=== PATIENT | male | born 1985 | race American Indian/Alaskan Native ===

== ENCOUNTER 2017-09-11 01:16 | Emergency (ER) | payer SELFPAY ==
--- NOTE | 2017-09-11 02:27 | Cat Scan Report ---
FINAL REPORT EXAM: CT HEAD/BRAIN WO CON HISTORY: headaches COMPARISON: None available. TECHNIQUE: Axial images obtained skull base through vertex. FINDINGS: No acute intracranial hemorrhage, midline shift or pathologic extra axial fluid collection. Ventricles and cisterns are normal in size and configuration for the patient's age. Zepeda-white differentiation preserved. Calvarium grossly intact. Visualized ocular globes are grossly unremarkable. Visualized para-nasal sinuses and mastoid air cells are clear. IMPRESSION: No grossly acute intracranial abnormality.
[2017-09-11 02:49] LABS: Basophils % (Auto) 0.3 % (0.0-1.8); Eosinophils # (Auto) 0.2 K/mm3 (0.0-0.4); Hematocrit 44.7 % (35.5-45.6); Hemoglobin 14.7 gm/dl (11.8-15.2); Lymphocytes # (Auto) 2.4 K/mm3 (1.2-5.4); Lymphocytes % (Auto) 30.4 % (13.4-35.0); Mean Corpuscular HGB Conc 33 % (32-34); Mean Corpuscular Volume 79 fl (84-94); Monocytes # (Auto) 0.7 K/mm3 (0.0-0.8); Monocytes % (Auto) 8.5 % (0.0-7.3); Platelet Count 314 K/mm3 (140-440); Red Blood Count 5.68 M/mm3 (3.65-5.03); Red Cell Distribution Width 14.5 % (13.2-15.2)
[2017-09-11 02:51] LABS: Mean Corpuscular Hemoglobin 26 pg (28-32)
[2017-09-11 03:06] LABS: BUN/Creatinine Ratio 22; Blood Urea Nitrogen 20 mg/dL (9-20); Calcium 9.1 mg/dL (8.4-10.2); Hemolysis Index 16
[2017-09-11 06:00] VITALS: BP 135/77
--- NOTE | 2017-09-11 06:34 | Emergency Department Report ---
ED General Adult HPI - General Chief complaint: Dizziness Stated complaint: HEADACHES Time Seen by Provider: 09/11/17 06:31 Source: patient Mode of arrival: Ambulatory Limitations: No Limitations - History of Present Illness Initial comments: Patient arrives for evaluation of one to 2 weeks of frontal headache. He states he's been working 2 shifts instead of one. He is apparently under stress. He states the headache is associated with being overwork. It is in the right frontal area. He states he periodically feels weak and dizzy with a headache. He does not vomit. He states he has had no fever no chills no focal neurologic change, that is, weakness or numbness. He denies any actual vertigo. No visual changeor difficulty no problems walking or speaking. -: week(s) Location: head Radiation: non-radiation Severity scale (0 -10): 0 Consistency: now resolved Improves with: none Worsens with: none Associated Symptoms: denies other symptoms Treatments Prior to Arrival: none - Related Data Previous Rx's Medication Instructions Recorded Last Taken Type Amlodipine Besylate [Norvasc] 2.5 mg PO DAILY #30 tab 09/11/17 Unknown Rx Butalb/Acetamin/Caff 50-325-40 1 each PO Q4H PRN #14 tablet 09/11/17 Unknown Rx [Fioricet] Allergies Allergy/AdvReac Type Severity Reaction Status Date / Time diphenhydramine Allergy Vomiting Verified 09/11/17 01:54 [From Benadryl] shellfish derived Allergy Hives Verified 09/11/17 01:54 ED Review of Systems ROS: Stated complaint: HEADACHES Other details as noted in HPI Constitutional: denies: chills, fever Eyes: denies: eye pain, eye discharge, vision change ENT: denies: ear pain, throat pain Respiratory: denies: cough, shortness of breath, wheezing Cardiovascular: denies: chest pain, palpitations Endocrine: no symptoms reported Gastrointestinal: denies: abdominal pain, nausea, diarrhea Genitourinary: denies: urgency, dysuria Musculoskeletal: denies: back pain, joint swelling, arthralgia Skin: denies: rash, lesions Neurological: headache. denies: weakness, paresthesias Psychiatric: denies: anxiety, depression Hematological/Lymphatic: denies: easy bleeding, easy bruising ED Past Medical Hx - Past Medical History Hx Diabetes: Yes - Surgical History Past Surgical History?: No - Social History Smoking Status: Never Smoker Substance Use Type: None - Medications Home Medications: Home Medications Medication Instructions Recorded Confirmed Last Taken Type Amlodipine Besylate [Norvasc] 2.5 mg PO DAILY #30 tab 09/11/17 Unknown Rx Butalb/Acetamin/Caff 50-325-40 1 each PO Q4H PRN #14 tablet 09/11/17 Unknown Rx [Fioricet] ED Physical Exam - General Limitations: No Limitations General appearance: alert, in no apparent distress - Head Head exam: Present: atraumatic, normocephalic, other (some seborrheic dermatitis noticed of the scalp and rico) - Eye Eye exam: Present: normal appearance, PERRL, EOMI. Absent: scleral icterus - ENT ENT exam: Present: mucous membranes moist - Neck Neck exam: Present: normal inspection. Absent: tenderness, meningismus - Respiratory Respiratory exam: Present: normal lung sounds bilaterally. Absent: respiratory distress - Cardiovascular Cardiovascular Exam: Present: regular rate, normal rhythm. Absent: systolic murmur, diastolic murmur, rubs, gallop - GI/Abdominal GI/Abdominal exam: Present: soft, normal bowel sounds. Absent: distended, tenderness, guarding, rebound, rigid - Rectal Rectal exam: Present: deferred - Extremities Exam Extremities exam: Present: normal inspection - Back Exam Back exam: Present: normal inspection - Neurological Exam Neurological exam: Present: alert, oriented X3, CN II-XII intact, normal gait, other (cerebellar testing was normal). Absent: motor sensory deficit - Psychiatric Psychiatric exam: Present: normal affect, normal mood - Skin Skin exam: Present: warm, dry, intact, normal color. Absent: rash ED Course Vital Signs 09/11/17 09/11/17 01:24 06:00 Temperature 98.6 F 98.1 F Pulse Rate 95 H 89 Respiratory 18 18 Rate Blood Pressure 142/93 135/77 [Right] O2 Sat by Pulse 99 Oximetry - Reevaluation(s) Reevaluation #1: She was found sleeping on my encounter. His blood pressure was 141/99. I am going to put him on a low-dose of amlodipine. He is referred to neurology and primary care for follow-up. 09/11/17 07:01 ED Medical Decision Making - Lab Data Result diagrams: 09/11/17 02:24 09/11/17 02:24 Laboratory Results - last 24 hr 09/11/17 09/11/17 02:24 02:24 WBC 7.9 RBC 5.68 H Hgb 14.7 Hct 44.7 MCV 79 L MCH 26 L MCHC 33 RDW 14.5 Plt Count 314 Lymph % (Auto) 30.4 [place] % (Auto) 8.5 H Eos % (Auto) 3.0 Baso % (Auto) 0.3 Lymph # 2.4 [place] # 0.7 Eos # 0.2 Baso # 0.0 Seg Neutrophils % 57.8 Seg Neutrophils # 4.6 Sodium 140 Potassium 4.4 Chloride 98.7 Carbon Dioxide 29 Anion Gap 17 BUN 20 Creatinine 0.9 Estimated GFR > 60 BUN/Creatinine Ratio 22 Glucose 89 Calcium 9.1 - Radiology Data Radiology results: report reviewed (CT the head was negative for any abnormal intracranial process) Critical care attestation.: If time is entered above; I have spent that time in minutes in the direct care of this critically ill patient, excluding procedure time. ED Disposition Clinical Impression: Essential hypertension, Seborrheic dermatitis of scalp Cephalalgia Qualifiers: Headache type: unspecified Headache chronicity pattern: episodic headache Intractability: not intractable Qualified Code(s): R51 - Headache Disposition: - TO HOME OR SELFCARE Is pt being admited?: No Does the pt Need Aspirin: No Condition: Stable Instructions: Hypertension (ED), Acute Headache (ED) Additional Instructions: He will use head and shoulders for the scaly patches of your scalp and rico. Follow-up with a industrial furnace fabricator if not resolved. Rx for headache. Return any acute change or problem. Medicine for your elevated blood pressure. Follow-up at this outside medical clinic and neurologist if your headache is persistent. Return any acute change or problems. Prescriptions: Amlodipine Besylate [Norvasc] 2.5 mg PO DAILY #30 tab Butalb/Acetamin/Caff 50-325-40 [Fioricet] 1 each PO Q4H PRN #14 tablet PRN Reason: Headache Referrals: BARRON MORATAYA MD [Primary Care Provider] - 3-5 Days KACI CONWAY MD [Staff Physician] - 3-5 Days [facility] [Provider Group] - 2-3 Days Time of Disposition: 07:05
== END 2017-09-11 07:18 | disposition home or self-care (01) ==
LOC: ED 01:16
DX: I10 Essential (primary) hypertension (principal); L21.9 Seborrheic dermatitis, unspecified; R51 Headache; E11.9 Type 2 diabetes mellitus without complications
CPT/HCPCS: 36415; 70450; 80048; 85025; 93005; 93010

== ENCOUNTER 2018-11-30 20:28 | Emergency (ER) | payer SELFPAY ==
--- NOTE | 2018-11-30 21:08 | Emergency Department Report ---
Blank Doc - Documentation Documentation: This is a 33-year-old male that presents with URI symptoms. This initial assessment/diagnostic orders/clinical plan/treatment(s) is/are subject to change based on patient's health status, clinical progression and re- assessment by fellow clinical providers in the ED. Further treatment and workup at subsequent clinical providers discretion. Patient/guardians urged not to elope from the ED as their condition may be serious if not clinically assessed and managed. Initial orders include: 1- Patient sent to [facility] for further evaluation and treatment 2- cxr
[2018-11-30 21:09] VITALS: BP 130/88
--- NOTE | 2018-11-30 21:46 | XRay Report ---
PROCEDURE: XR CHEST ROUTINE 2V TECHNIQUE: PA and lateral chest radiographs were obtained. HISTORY: cough COMPARISONS: None. FINDINGS: Heart: Normal. Mediastinum/Vessels: Normal. Lungs/Pleural space: Normal. Bony thorax: No acute osseous abnormality. IMPRESSION: Normal examination. This document is electronically signed by Harvinder Lancaster MD., November 30 2018 10:44:51 PM ET
--- NOTE | 2018-12-01 01:10 | Emergency Department Report ---
- General Chief Complaint: Upper Respiratory Infection Stated Complaint: COLD SYMPTOMS/DIARRHEA Time Seen by Provider: 11/30/18 21:08 Source: patient Mode of arrival: Ambulatory Limitations: No Limitations - History of Present Illness Initial Comments: Patient is a 33-year-old Polish male with a history of hypertension and presents to the ED with complaint of acute onset persistent severe intermittent nasal and sinus congestion with dry cough, frontal sinus pressure and headache for the last 2 weeks. Patient states that the symptoms are worse at night when he lays down to sleep. Patient denies chest pain, shortness of breath, fever, chills, nausea, vomiting, dizziness, diarrhea, abdominal pain, sore throat or change in vision and back pain. MD Complaint: cough, rhinorrhea, nasal congestion, sinus pain -: Sudden, week(s) (2) Severity: severe Severity scale (0 -10): 7 Quality: aching Consistency: constant Improves With: nothing Worsens With: nothing Context: sick contacts Associated Symptoms: denies other symptoms, headache, rhinorrhea, nasal congestion, cough, chest pain, shortness of breath. denies: fever, chills, myalgias, diaphoresis, sore throat, abdominal pain, nausea, vomiting, dysuria, rash, confusion, right sweats, epistaxis, hoarseness Treatments Prior to Arrival: none - Related Data Previous Rx's Medication Instructions Recorded Last Taken Type Amlodipine Besylate [Norvasc] 2.5 mg PO DAILY #30 tab 09/11/17 Unknown Rx Butalb/Acetamin/Caff 50-325-40 1 each PO Q4H PRN #14 tablet 09/11/17 Unknown Rx [Fioricet] Amoxicillin/Potassium Clav 1 each PO Q12H #20 tablet 12/01/18 Unknown Rx [Augmentin 875-125 Tablet] Benzonatate [Tessalon Perles] 100 mg PO Q8HR #30 capsule 12/01/18 Unknown Rx Ibuprofen [Motrin] 800 mg PO Q8HR PRN #20 tablet 12/01/18 Unknown Rx Prednisone [predniSONE 10 mg 10 mg PO .TAPER #21 tab.ds.pk 12/01/18 Unknown Rx (6-Day Pack, 21 Tabs)] Allergies Allergy/AdvReac Type Severity Reaction Status Date / Time diphenhydramine Allergy Vomiting Verified 09/11/17 01:54 [From Benadryl] shellfish derived Allergy Hives Verified 09/11/17 01:54 ED Review of Systems ROS: Stated complaint: COLD SYMPTOMS/DIARRHEA Other details as noted in HPI Comment: All other systems reviewed and negative Constitutional: no symptoms reported, see HPI. denies: diaphoresis, fever, malaise Eyes: as per HPI. denies: eye pain, eye discharge, vision change ENT: as per HPI, congestion. denies: ear pain, throat pain, epistaxis Respiratory: no symptoms reported, see HPI, cough, shortness of breath Cardiovascular: as per HPI. denies: chest pain, palpitations, dyspnea on exertion, edema, syncope, paroxysmal nocturnal dyspnea Endocrine: no symptoms reported, see HPI. denies: excessive sweating, flushing, intolerance to cold, intolerance to heat, increased hunger, unexplained weight gain, unexplained weight loss Gastrointestinal: as per HPI. denies: abdominal pain, nausea, vomiting, diarrhea, constipation, hematemesis Genitourinary: as per HPI. denies: urgency, dysuria, frequency, hematuria, testicular pain, testicular mass Musculoskeletal: as per HPI. denies: back pain, joint swelling, arthralgia Skin: as per HPI. denies: rash, lesions, change in color, change in hair/nails Neurological: as per HPI, headache. denies: numbness, paresthesias, confusion Psychiatric: as per HPI. denies: auditory hallucinations, visual hallucinations, homicidal thoughts Hematological/Lymphatic: as per HPI ED Past Medical Hx - Past Medical History Previous Medical History?: Yes Hx Diabetes: Yes (not on meds) - Surgical History Past Surgical History?: No - Social History Smoking Status: Current Every Day Smoker Substance Use Type: None - Medications Home Medications: Home Medications Medication Instructions Recorded Confirmed Last Taken Type Amlodipine Besylate [Norvasc] 2.5 mg PO DAILY #30 tab 09/11/17 Unknown Rx Butalb/Acetamin/Caff 50-325-40 1 each PO Q4H PRN #14 tablet 09/11/17 Unknown Rx [Fioricet] Amoxicillin/Potassium Clav 1 each PO Q12H #20 tablet 12/01/18 Unknown Rx [Augmentin 875-125 Tablet] Benzonatate [Tessalon Perles] 100 mg PO Q8HR #30 capsule 12/01/18 Unknown Rx Ibuprofen [Motrin] 800 mg PO Q8HR PRN #20 tablet 12/01/18 Unknown Rx Prednisone [predniSONE 10 mg 10 mg PO .TAPER #21 tab.ds.pk 12/01/18 Unknown Rx (6-Day Pack, 21 Tabs)] ED Physical Exam - General Limitations: No Limitations General appearance: alert, in no apparent distress - Head Head exam: Present: atraumatic, normocephalic, normal inspection - Eye Eye exam: Present: normal appearance, PERRL, EOMI. Absent: scleral icterus, conjunctival injection, nystagmus, periorbital swelling Pupils: Present: normal accommodation - ENT ENT exam: Present: normal exam, normal orophraynx, mucous membranes moist, TM's normal bilaterally, normal external ear exam, other - Neck Neck exam: Present: normal inspection, full ROM. Absent: tenderness, meningismus, lymphadenopathy, thyromegaly - Respiratory Respiratory exam: Present: normal lung sounds bilaterally. Absent: respiratory distress, wheezes, rales, rhonchi, chest wall tenderness, accessory muscle use, prolonged expiratory - Cardiovascular Cardiovascular Exam: Present: regular rate, normal rhythm, normal heart sounds - GI/Abdominal GI/Abdominal exam: Present: soft, normal bowel sounds. Absent: tenderness, guarding, rebound, hyperactive bowel sounds, hypoactive bowel sounds, organomegaly - Rectal Rectal exam: Present: deferred - Extremities Exam Extremities exam: Present: normal inspection, full ROM, normal capillary refill - Back Exam Back exam: Present: normal inspection, full ROM. Absent: CVA tenderness (R), CVA tenderness (L), muscle spasm, paraspinal tenderness - Neurological Exam Neurological exam: Present: alert, oriented X3, CN II-XII intact, normal gait, reflexes normal - Psychiatric Psychiatric exam: Present: normal affect - Skin Skin exam: Present: warm, dry, intact, normal color ED Course Vital Signs 11/30/18 11/30/18 20:35 21:08 Temperature 98.6 F 98.6 F Pulse Rate 83 84 Respiratory 18 18 Rate Blood Pressure 130/88 130/88 O2 Sat by Pulse 99 98 Oximetry - Reevaluation(s) Reevaluation #1: 12/01/18 01:14 Patient is alert and oriented 3 and is not in distress. Chest x-ray shows no acute cardiopulmonary abnormalities. Patient was discharged home on medications and advised follow-up with his primary care physician in 5-7 days for reevaluation or return to the ED immediately if symptoms get worse. Patient's symptoms are likely due to acute upper respiratory infection. ED Medical Decision Making - Radiology Data Radiology results: report reviewed, image reviewed No acute cardiopulmonary abnormalities - Medical Decision Making Patient is alert and oriented 3 and is not in distress. Chest x-ray shows no acute cardiopulmonary abnormalities. Patient was discharged home on medications and advised follow-up with his primary care physician in 5-7 days for r eevaluation or return to the ED immediately if symptoms get worse. Patient's symptoms are likely due to acute upper respiratory infection. - Differential Diagnosis Acute upper resp. infection, acute bronchitis Critical care attestation.: If time is entered above; I have spent that time in minutes in the direct care of this critically ill patient, excluding procedure time. ED Disposition Clinical Impression: Acute upper respiratory infection Acute bronchitis Qualifiers: Bronchitis organism: unspecified organism Qualified Code(s): J20.9 - Acute bronchitis, unspecified Disposition: TO HOME OR SELFCARE Is pt being admited?: No Does the pt Need Aspirin: No Condition: Stable Instructions: Acute Bronchitis (ED), Upper Respiratory Infection (ED) Additional Instructions: Take medications with food, drink plenty of fluids and follow up with your primary care physician in 7-10 days for reevaluation. Return to the ED immediately if symptoms get worse. Prescriptions: Amoxicillin/Potassium Clav [Augmentin 875-125 Tablet] 1 each PO Q12H #20 tablet Ibuprofen [Motrin] 800 mg PO Q8HR PRN #20 tablet PRN Reason: Pain , Severe (7-10) Prednisone [predniSONE 10 mg (6-Day Pack, 21 Tabs)] 10 mg PO .TAPER #21 tab.ds.pk Benzonatate [Tessalon Perles] 100 mg PO Q8HR #30 capsule Referrals: ALLEY PRIETO MD [Primary Care Provider] - 3-5 Days Time of Disposition: 01:10 Print Language: BELARUSIAN
== END 2018-12-01 01:35 | disposition home or self-care (01) ==
LOC: ED 20:28
DX: J20.9 Acute bronchitis, unspecified (principal); J06.9 Acute upper respiratory infection, unspecified; E11.9 Type 2 diabetes mellitus without complications; F17.200 Nicotine dependence, unspecified, uncomplicated; Z88.8 Allergy status to other drugs, medicaments and biological substances; Z91.013 Allergy to seafood
CPT/HCPCS: 71046

== ENCOUNTER 2019-01-04 15:48 | Emergency (ER) | payer OTHER ==
[2019-01-04 16:30] VITALS: BP 127/76
--- NOTE | 2019-01-04 16:31 | Event Note ---
ED Screening Note ED Screening Note: pt presents with edema to the right ear that began this morning never happened before no fever no ear drainage appears to have possible abscess to the right ear no PMHx allergy: benadryl-"drowsy/faint" and shellfish This initial assessment/diagnostic orders/clinical plan/treatment(s) is/are subj ect to change based on patients health status, clinical progression and re- assessment by fellow clinical providers in the ED. Further treatment and workup at subsequent clinical providers discretion. Patient/guardian urged not to elope from the ED as their condition may be serious if not clinically assessed and managed.
[2019-01-04] MEDS ORDERED: XYLOCAINE 1% MPF 5 mL INFILTRATI ONE (18:59)
[2019-01-04] MEDS ORDERED: BACTRIM DS PO ONE (18:59)
--- NOTE | 2019-01-04 19:28 | Emergency Department Report ---
ED ENT HPI - General Chief complaint: Earache Stated complaint: RT EAR PAIN Time Seen by Provider: 01/04/19 16:28 Source: patient Mode of arrival: Ambulatory Limitations: No Limitations - History of Present Illness Initial comments: 33-year-old male right earlobe tenderness, swelling, for the past one day. Fever, chills or night sweats. Thinks he might have been bitten by a mosquito earlier this morning. - Related Data Previous Rx's Medication Instructions Recorded Last Taken Type Amlodipine Besylate [Norvasc] 2.5 mg PO DAILY #30 tab 09/11/17 Unknown Rx Butalb/Acetamin/Caff 50-325-40 1 each PO Q4H PRN #14 tablet 09/11/17 Unknown Rx [Fioricet] Amoxicillin/Potassium Clav 1 each PO Q12H #20 tablet 12/01/18 Unknown Rx [Augmentin 875-125 Tablet] Benzonatate [Tessalon Perles] 100 mg PO Q8HR #30 capsule 12/01/18 Unknown Rx Ibuprofen [Motrin] 800 mg PO Q8HR PRN #20 tablet 12/01/18 Unknown Rx Prednisone [predniSONE 10 mg 10 mg PO .TAPER #21 tab.ds.pk 12/01/18 Unknown Rx (6-Day Pack, 21 Tabs)] Sulfamethoxazole/Trimethoprim 1 each PO BID #14 tablet 01/04/19 Unknown Rx [Bactrim DS TAB] Allergies Allergy/AdvReac Type Severity Reaction Status Date / Time diphenhydramine Allergy Vomiting Verified 09/11/17 01:54 [From Benadryl] shellfish derived Allergy Hives Verified 09/11/17 01:54 ED Dental HPI - General Chief complaint: Earache Stated complaint: RT EAR PAIN Time Seen by Provider: 01/04/19 16:28 Source: patient Mode of arrival: Ambulatory Limitations: No Limitations - Related Data Previous Rx's Medication Instructions Recorded Last Taken Type Amlodipine Besylate [Norvasc] 2.5 mg PO DAILY #30 tab 09/11/17 Unknown Rx Butalb/Acetamin/Caff 50-325-40 1 each PO Q4H PRN #14 tablet 09/11/17 Unknown Rx [Fioricet] Amoxicillin/Potassium Clav 1 each PO Q12H #20 tablet 12/01/18 Unknown Rx [Augmentin 875-125 Tablet] Benzonatate [Tessalon Perles] 100 mg PO Q8HR #30 capsule 12/01/18 Unknown Rx Ibuprofen [Motrin] 800 mg PO Q8HR PRN #20 tablet 12/01/18 Unknown Rx Prednisone [predniSONE 10 mg 10 mg PO .TAPER #21 tab.ds.pk 12/01/18 Unknown Rx (6-Day Pack, 21 Tabs)] Sulfamethoxazole/Trimethoprim 1 each PO BID #14 tablet 01/04/19 Unknown Rx [Bactrim DS TAB] Allergies Allergy/AdvReac Type Severity Reaction Status Date / Time diphenhydramine Allergy Vomiting Verified 09/11/17 01:54 [From Benadryl] shellfish derived Allergy Hives Verified 09/11/17 01:54 ED Review of Systems ROS: Stated complaint: RT EAR PAIN Other details as noted in HPI Comment: All other systems reviewed and negative Constitutional: denies: chills ENT: ear pain Respiratory: denies: cough Cardiovascular: denies: chest pain, palpitations, dyspnea on exertion Gastrointestinal: denies: abdominal pain, nausea, vomiting ED Past Medical Hx - Past Medical History Previous Medical History?: No Hx Diabetes: Yes (not on meds) - Social History Smoking Status: Never Smoker Substance Use Type: None - Medications Home Medications: Home Medications Medication Instructions Recorded Confirmed Last Taken Type Amlodipine Besylate [Norvasc] 2.5 mg PO DAILY #30 tab 09/11/17 Unknown Rx Butalb/Acetamin/Caff 50-325-40 1 each PO Q4H PRN #14 tablet 09/11/17 Unknown Rx [Fioricet] Amoxicillin/Potassium Clav 1 each PO Q12H #20 tablet 12/01/18 Unknown Rx [Augmentin 875-125 Tablet] Benzonatate [Tessalon Perles] 100 mg PO Q8HR #30 capsule 12/01/18 Unknown Rx Ibuprofen [Motrin] 800 mg PO Q8HR PRN #20 tablet 12/01/18 Unknown Rx Prednisone [predniSONE 10 mg 10 mg PO .TAPER #21 tab.ds.pk 12/01/18 Unknown Rx (6-Day Pack, 21 Tabs)] Sulfamethoxazole/Trimethoprim 1 each PO BID #14 tablet 01/04/19 Unknown Rx [Bactrim DS TAB] ED Physical Exam - General Limitations: No Limitations General appearance: alert - Head Head exam: Present: atraumatic - Eye Eye exam: Present: normal appearance, PERRL, EOMI Pupils: Present: normal accommodation, irregular - ENT ENT exam: Present: other (right earlobe swelling, tenderness) - Respiratory Respiratory exam: Present: normal lung sounds bilaterally - Cardiovascular Cardiovascular Exam: Present: regular rate, normal rhythm - GI/Abdominal GI/Abdominal exam: Present: soft, normal bowel sounds ED Course Vital Signs 01/04/19 01/04/19 16:29 19:44 Temperature 98.9 F Pulse Rate 95 H 75 Respiratory 18 18 Rate Blood Pressure 127/76 O2 Sat by Pulse 95 98 Oximetry - I & D Right Ear Site: right earlobe Blade Size: 11 I & D Procedure: betadine prep, sterile drapes applied, sterile dressing applied Progress: Patient tolerated procedure well Critical care attestation.: If time is entered above; I have spent that time in minutes in the direct care of this critically ill patient, excluding procedure time. ED Disposition Clinical Impression: Abscess of right earlobe Disposition: DC-01 TO HOME OR SELFCARE Is pt being admited?: No Does the pt Need Aspirin: No Condition: Stable Prescriptions: Sulfamethoxazole/Trimethoprim [Bactrim DS TAB] 1 each PO BID #14 tablet Referrals: ALLEY PRIETO MD [Primary Care Provider] - 3-5 Days Forms: Work/School Release Form(ED)
== END 2019-01-04 19:44 | disposition home or self-care (01) ==
LOC: ED 15:48
DX: H60.01 Abscess of right external ear (principal); E11.9 Type 2 diabetes mellitus without complications; Z79.899 Other long term (current) drug therapy; Z88.8 Allergy status to other drugs, medicaments and biological substances; Z91.013 Allergy to seafood
CPT/HCPCS: 99282

== ENCOUNTER 2019-01-21 15:07 | Emergency (ER) | payer OTHER ==
[2019-01-21] MEDS ORDERED: BOOSTRIX IM ONE ×2 (15:15→17:53)
--- NOTE | 2019-01-21 15:16 | Event Note ---
ED Screening Note Date of service: 01/21/19 Time: 15:14 ED Screening Note: 33 y/o male comes in for right ear auricle swelling and painful to touch. This initial assessment/diagnostic orders/clinical plan/treatment(s) is/are subject to change based on patients health status, clinical progression and re- assessment by fellow clinical providers in the ED. Further treatment and workup at subsequent clinical providers discretion. Patient/guardian urged not to elope from the ED as their condition may be serious if not clinically assessed and managed. Initial orders include:
--- NOTE | 2019-01-21 16:39 | Emergency Department Report ---
ED ENT HPI - General Chief complaint: Skin/Abscess/Foreign Body Stated complaint: RT EAR BUMP/PAIN Time Seen by Provider: 01/21/19 16:25 Source: patient Mode of arrival: Ambulatory Limitations: No Limitations - History of Present Illness Initial comments: Patient is a 33-year-old male with who presents to emergency room with complaints of a possible abscess to the right auricle began 3 weeks ago. he was evaluated in the ED on 01/04 for the same symptoms. Had an I&D performed at that time and was placed on Bactrim. He states a few days after the I&D he began to have the symptoms again. Denies any drainage or fever. He denies any past medical history. He has an allergy to Benadryl and shellfish. - Related Data Previous Rx's Medication Instructions Recorded Last Taken Type Amlodipine Besylate [Norvasc] 2.5 mg PO DAILY #30 tab 09/11/17 Unknown Rx Butalb/Acetamin/Caff 50-325-40 1 each PO Q4H PRN #14 tablet 09/11/17 Unknown Rx [Fioricet] Amoxicillin/Potassium Clav 1 each PO Q12H #20 tablet 12/01/18 Unknown Rx [Augmentin 875-125 Tablet] Benzonatate [Tessalon Perles] 100 mg PO Q8HR #30 capsule 12/01/18 Unknown Rx Ibuprofen [Motrin] 800 mg PO Q8HR PRN #20 tablet 12/01/18 Unknown Rx Prednisone [predniSONE 10 mg 10 mg PO .TAPER #21 tab.ds.pk 12/01/18 Unknown Rx (6-Day Pack, 21 Tabs)] Sulfamethoxazole/Trimethoprim 1 each PO BID #14 tablet 01/04/19 Unknown Rx [Bactrim DS TAB] Clindamycin [Clindamycin CAP] 450 mg PO TID 7 Days #63 capsule 01/21/19 Unknown Rx Allergies Allergy/AdvReac Type Severity Reaction Status Date / Time diphenhydramine Allergy Vomiting Verified 01/21/19 17:56 [From Benadryl] shellfish derived Allergy Hives Verified 01/21/19 17:56 ED Dental HPI - General Chief complaint: Skin/Abscess/Foreign Body Stated complaint: RT EAR BUMP/PAIN Time Seen by Provider: 01/21/19 16:25 Source: patient Mode of arrival: Ambulatory Limitations: No Limitations - Related Data Previous Rx's Medication Instructions Recorded Last Taken Type Amlodipine Besylate [Norvasc] 2.5 mg PO DAILY #30 tab 09/11/17 Unknown Rx Butalb/Acetamin/Caff 50-325-40 1 each PO Q4H PRN #14 tablet 09/11/17 Unknown Rx [Fioricet] Amoxicillin/Potassium Clav 1 each PO Q12H #20 tablet 12/01/18 Unknown Rx [Augmentin 875-125 Tablet] Benzonatate [Tessalon Perles] 100 mg PO Q8HR #30 capsule 12/01/18 Unknown Rx Ibuprofen [Motrin] 800 mg PO Q8HR PRN #20 tablet 12/01/18 Unknown Rx Prednisone [predniSONE 10 mg 10 mg PO .TAPER #21 tab.ds.pk 12/01/18 Unknown Rx (6-Day Pack, 21 Tabs)] Sulfamethoxazole/Trimethoprim 1 each PO BID #14 tablet 01/04/19 Unknown Rx [Bactrim DS TAB] Clindamycin [Clindamycin CAP] 450 mg PO TID 7 Days #63 capsule 01/21/19 Unknown Rx Allergies Allergy/AdvReac Type Severity Reaction Status Date / Time diphenhydramine Allergy Vomiting Verified 01/21/19 17:56 [From Benadryl] shellfish derived Allergy Hives Verified 01/21/19 17:56 ED Review of Systems ROS: Stated complaint: RT EAR BUMP/PAIN Other details as noted in HPI Comment: All other systems reviewed and negative ED Past Medical Hx - Past Medical History Hx Diabetes: Yes (not on meds) - Social History Smoking Status: Never Smoker Substance Use Type: None - Medications Home Medications: Home Medications Medication Instructions Recorded Confirmed Last Taken Type Amlodipine Besylate [Norvasc] 2.5 mg PO DAILY #30 tab 09/11/17 Unknown Rx Butalb/Acetamin/Caff 50-325-40 1 each PO Q4H PRN #14 tablet 09/11/17 Unknown Rx [Fioricet] Amoxicillin/Potassium Clav 1 each PO Q12H #20 tablet 12/01/18 Unknown Rx [Augmentin 875-125 Tablet] Benzonatate [Tessalon Perles] 100 mg PO Q8HR #30 capsule 12/01/18 Unknown Rx Ibuprofen [Motrin] 800 mg PO Q8HR PRN #20 tablet 12/01/18 Unknown Rx Prednisone [predniSONE 10 mg 10 mg PO .TAPER #21 tab.ds.pk 12/01/18 Unknown Rx (6-Day Pack, 21 Tabs)] Sulfamethoxazole/Trimethoprim 1 each PO BID #14 tablet 01/04/19 Unknown Rx [Bactrim DS TAB] Clindamycin [Clindamycin CAP] 450 mg PO TID 7 Days #63 capsule 01/21/19 Unknown Rx ED Physical Exam - General Limitations: No Limitations General appearance: alert, in no apparent distress - Head Head exam: Present: atraumatic, normocephalic - Eye Eye exam: Present: normal appearance - ENT ENT exam: Present: other (2 cm area of induration to the right auricle, no drainage present ) - Neurological Exam Neurological exam: Present: alert, oriented X3 - Psychiatric Psychiatric exam: Present: normal affect, normal mood - Skin Skin exam: Present: warm, dry, intact ED Course Vital Signs 01/21/19 01/21/19 15:14 18:15 Temperature 98.4 F 98.5 F Pulse Rate 99 H 79 Respiratory 16 15 Rate Blood Pressure 143/97 Blood Pressure 132/88 [Left] O2 Sat by Pulse 96 100 Oximetry - I & D Right Ear Type of Procedure: Simple Site: right auricle Blade Size: 11 I & D Procedure: betadine prep, sterile drapes applied, sterile dressing applied Progress: 2 cm area of edema present to the right auricle, area prepped with betadine, sterile drapes applied, 2 cc of 2% lidocaine used for anesthetic, 1 cm incision made with 11 blade, hematoma expressed, irrigated with 20 cc of saline, packed with iodoform gauze, pt tolerated well, no complications, bleeding controlled, sterile dressing applied ED Medical Decision Making - Medical Decision Making Patient is a 33-year-old male with who presents to emergency room with complaints of a possible abscess to the right auricle began 3 weeks ago. he was evaluated in the ED on 01/04 for the same symptoms. Had an I&D performed at that time and was placed on Bactrim. He states a few days after the I&D he began to have the symptoms again. Denies any drainage or fever. He denies any past medical history. He has an allergy to Benadryl and shellfish. on exam: 2 cm area of induration to the right auricle, no drainage present. pt evaluated by Dr. Mederos at bedside who recommended I&D and clindamycin. I&D performed per procedure note and hematoma expressed and packing placed. pt given prescription for clindamycin advised to take as prescribed. advised pt to please keep area clean and dry. do not get in hot tub, pool, bath tub, may wash around area with soap and water and immediately dry. packing needs to be removed in 2 days. take medication as prescribed. follow up with a primary care doctor in the next 2-3 days for reevaluation. return to the emergency room for any new or worsening symptoms. follow up with an ENT doctor if symptoms do not improve. - Differential Diagnosis abscess, cellulitis, hematoma Critical care attestation.: If time is entered above; I have spent that time in minutes in the direct care of this critically ill patient, excluding procedure time. ED Disposition Clinical Impression: Encounter for incision and drainage procedure Hematoma of right ear Qualifiers: Encounter type: initial encounter Qualified Code(s): S00.431A - Contusion of right ear, initial encounter Disposition: TO HOME OR SELFCARE Is pt being admited?: No Does the pt Need Aspirin: No Condition: Stable Instructions: Incision and Drainage (ED) Additional Instructions: please keep area clean and dry. do not get in hot tub, pool, bath tub, may wash around area with soap and water and immediately dry. packing needs to be removed in 2 days. take medication as prescribed. follow up with a primary care doctor in the next 2-3 days for reevaluation. return to the emergency room for any new or worsening symptoms. follow up with an ENT doctor if symptoms do not improve. Prescriptions: Clindamycin [Clindamycin CAP] 450 mg PO TID 7 Days #63 capsule [facility] [Primary Care Provider] - 2-3 Days ANDREA ALVAREZ MD [Staff Physician] - 2-3 Days Time of Disposition: 17:35 Print Language: GEORGIAN
[2019-01-21 18:16] VITALS: BP 132/88
== END 2019-01-21 18:15 | disposition home or self-care (01) ==
LOC: ED 15:07
DX: S00.431A Contusion of right ear, initial encounter (principal); H66.41 Suppurative otitis media, unspecified, right ear; X58.XXXA Exposure to other specified factors, initial encounter; Y93.89 Activity, other specified; Y92.89 Other specified places as the place of occurrence of the external cause; Y99.8 Other external cause status
CPT/HCPCS: 82962; 90471; 90715